=== PATIENT | female | born 1955 | race Caucasian/White ===

== ENCOUNTER → 2017-07-28 | Outpatient (CLI) | payer OTHER, BC ==
[~2017-07-28] VITALS: Ht 170.2 cm; Wt 49.9 kg
[~2017-07-28] MED LIST: ADVIL200 M1 PO; AMBIEN 5 MG TABL5 M1; HYDROCODONE-IBU1 TAB; MULTIVITAMINS; NATURE-THROID325 MG; NEURONTIN 300300 M1; NORCO 5-325 TA1 EACH; TRAMADOL 50 MG50 MG PO; ZOFRAN ODT4 MG PO; nattokinase PO
--- NOTE | ~2017-07-28 | HPC ---
[facility] [place] [address] PAIN MANAGEMENT CONSULTATION Name: STEPHANIE DA SILVA Room #: REG IRIS Sameer#: [id number] Admission: 07/28/17 Attend Phys: Matthew Sultana DO Discharge: Date of : 59 Report #: [id number] THIS REPORT FOR: //name// CC: Clarisse Sultana HISTORY OF PRESENT ILLNESS: The patient is a 62-year-old female seen in consultation at the request of Dr. Teran's office for evaluation of low back and lumbar radicular pain. The patient notes she has had chronic low back pain since 2012. Denies specific antecedent trauma or overuse. Notes that since March, she has had pain radiating into the groin, posterior thighs, medial legs down to her feet. She notes her feet are "numb." She states she has tried physical therapy and chiropractic manipulation. Trigger point injections in October [address] [facility] had helped with some of her axial back pain. She states she takes rare Vicodin and occasional Advil. She describes a constant, steady, continuous, burning, shooting, aching, crushing, gnawing, sharp pain and rates anywhere from 7 to 10 on a VAS. Notes activity exacerbates the pain, some relief with medication, rest and certified caregiver. Denies myelopathic symptoms. REVIEW OF SYSTEMS: Complete review of systems attached to chart and gone over with the patient. She is . She does not smoke or drink alcohol to excess. History of a tonsillectomy, , hysterectomy and cholecystectomy. Parathyroidectomy. Breast augmentation. The patient states she has had a "mild stroke." On further questioning, she has had absolutely zero symptoms, but by reports, a cerebral MRI had noted some areas in the brain that could be related to ischemia. States she has had some chronic axial back pain. Because of the history of "stroke," she has placed herself on a dietary supplement, Nattokinase, 2000 units b.i.d. 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 Pain impact score averages about 7.2 for all indices queried. Medication list was reconciled. Again, uses Nattokinase, she uses a "nature thyroid 1 grain supplement" daily, Advil p.r.n. and zolpidem 5-10 mg at bedtime. PHYSICAL EXAMINATION: GENERAL: Reveals a 5-foot, 7-inch, 49.9-kilogram female, BMI 17.2 kilograms per meter squared. NEUROLOGIC: Cranial nerves 2-12 are grossly intact. Pupils are equal and reactive to light and accommodation. Extraocular muscles are intact. Does have some facial asymmetry and areas of hypomobility (sequelae of Botox injection?). NECK: Shows a small incision in the inferior aspect of the neck compatible with her stated parathyroid gland removal. Thyroid is otherwise unremarkable. [address] [address] PAIN MANAGEMENT CONSULTATION Name: STEPHANIE DA SILVA Room #: REG IRIS Estrella#: [id number] Admission: 07/28/17 Attend Phys: Matthew Sultana DO Discharge: Date of : 59 Report #: [id number] Cervical range of motion is full. Upper extremity strength is generally symmetric. HEART: Regular rhythmical without murmur. LUNGS: Clear to auscultation. MUSCULOSKELETAL: Gait is tandem. Lumbar flexion is good at 90 degrees. Has some diffuse tenderness. Trigger points noted in the bilateral lumbar paravertebral muscles and gluteus medius bilaterally. Lower extremity strength is a little diminished on the left about 3/5 versus 4/5 on the right. Straight leg raise is grossly positive on the left at 30 degrees. Patellar reflex is modestly diminished. DIAGNOSTIC STUDIES: Include MRI of the lumbar spine from 06/23/2017. L4-L5 notes posterior osteophyte and disk bulging with severe bilateral facet arthrosis and ligamentum flavum hypertrophy with severe left greater than right neural foraminal narrowing. ASSESSMENT: 1. Symptomatic lumbar radiculopathy by clinical exam and history. 2. Myofascial pain component, axial back. 3. Curious history of some cerebral changes compatible with ischemia, question history of cerebrovascular accident. RECOMMENDATIONS: 1. Trigger point injections today. 2. Continue [id number] ibuprofen. Consider epidural injection under fluoroscopy to help with the lumbar radicular component. ____ to Research, which suggests that Nattokinase, which is a water soluble enzyme capable of digesting fibrin increasing plasmin substrate should be withheld for 2 weeks prior to neuraxial manipulation. I told the patient if she will stay off Nattokinase for 2 weeks, we can move forward with lumbar epidural injection under fluoroscopy at L4-L5. The patient was very put off by this. She in fact gave me a study from alternative therapies in April 2013. I read the study. It merely notes that Nattokinase can be detected in the blood of the patients starting within 2 hours and remains present at 48 hours. It appears that the degradation slope is very slow, it looks like 2 weeks is a reasonable time. Regarding myofascial pain in low back, we did elect to proceed with trigger point injections times 4 today. The patient was told to use ice to the area and stretch. We talked about range of motion, core strengthening, Pilates and yoga-type exercises. Thank you for allowing me to participate in this patient's care. I will keep you abreast of her progress. [facility] [address] [place] [address] PAIN MANAGEMENT CONSULTATION Name: STEPHANIE DA SILVA Room #: REG [facility].#: [id number] Admission: 07/28/17 Attend Phys: Matthew Sultana DO Discharge: Date of : 59 Report #: [id number] PROCEDURE NOTE: Trigger point injections times 4. PROCEDURE: After written informed consent was obtained, the patient was placed in the prone position. Trigger points in the inferior lumbar paravertebral muscles bilaterally and gluteus medius bilaterally were identified and cleansed with alcohol. Using a 25-gauge needle, 40 mg of triamcinolone plus 8 mL of 0.5% preservative-free bupivacaine were injected into and around the 4 discrete trigger points. The needle was removed. The area was cleansed. Band-Aid was applied. The patient was monitored for an appropriate period of time and discharged in good and stable condition. We offered an appointment in 2 weeks for epidural injection under fluoroscopy off of Nattokinase. The patient declined. By: [id number] Matthew Sultana DO /nt
[2017-07-28 13:54] VITALS: BP 122/90
== END | disposition home or self-care (01) ==
LOC: PAIN 07:37
DX: M79.1 Myalgia (principal); M54.16 Radiculopathy, lumbar region; Z90.710 Acquired absence of both cervix and uterus; Z98.890 Other specified postprocedural states; Z90.49 Acquired absence of other specified parts of digestive tract; Z79.899 Other long term (current) drug therapy; M19.90 Unspecified osteoarthritis, unspecified site